=== PATIENT | male | born 1945 | race Caucasian/White ===

== ENCOUNTER 2019-10-15 11:18 | Inpatient (IN) | payer MEDICARE, BC ==
[~2019-10-15] VITALS: Ht 180.3 cm; Wt 86.4 kg
[2019-10-15] VITALS (254 sets, daily range): BP systolic 87–177; BP diastolic 52–96; PULSE 80–95; TEMP 97.8–98.5; O2SAT 91–97
--- NOTE | 2019-10-15 11:45 | NUR ---
SEE MERGE DOCUMENTATION FOR MEDICATION ADMINISTRATION TIMES AND INTRA/POST PROCEDURE SEDATION ASSESSMENTS. RIGHT HAND BARBEAU TEST POSITIVE. TRANSFER DIRECT TO NUCLEAR DESIGN ENGINEER VIA EMS. CP CURRENTLY 07/24.
--- NOTE | 2019-10-15 13:24 | NUR ---
1324 MD Beau called/notified pt experiencing worsening chest pain rated at 3-4/10 to left chest that is aching in nature. Orders recieved - Nitroglycerine gtt initiated. SpO2 90% on room air - 2LNC applied At that time, ABBY Ji on unit and notified of aforementioned - MD Scotty updated by Margy 1347 EKG ordered and RT called with MD Scotty in room d/t chest pain rated at 6/10 - Nitroglycerine gtt increased to 20mcg/min 1348 MD Beau called again 1353 SpO2 92% on 2L NC - increased to 3L 1354 Chest pain rated at 3/10 1356 CathLab team and MD Beau in room - pt off to cathlab after giving bedside report to DILAN Galeas and DILAN Dotson Critical PTT lab result called to DILAN Galeas in cathlab at 1434
[2019-10-15] MEDS ORDERED: LIPITOR 10MG10 MG PO (13:36)
[2019-10-15] MEDS ORDERED: ASPIRIN 81M81 MG/TA2 PO (13:37)
[2019-10-15 13:53] LABS: HEMATOCRIT 51.8 % (42.0-52.0); HEMOGLOBIN 16.9 g/dl (13.5-18.0); MEAN CELL VOLUME 91 fl (80.0-100.0); MEAN CORPUSCULAR HEMOGLOBIN 30 pg (27.0-31.0); MEAN CORPUSCULAR HGB CONC 33 g/dl (33.0-37.0); MEAN PLATELET VOLUME 10.6 fl (7.4-10.4); PLATELET COUNT 179 K/mm3 (130-400); RED BLOOD COUNT 5.67 M/mm3 (4.20-5.60)
[2019-10-15 13:58] LABS: INR 1.8 (0.8-3.0); PROTHROMBIN TIME 20.1 SECONDS (9.7-12.8)
[2019-10-15 14:08] LABS: CALCIUM 9.4 mg/dL (8.4-10.2); CREATININE, serum 1.11 (0.66-1.25); POTASSIUM 4.3 mmol/L (3.4-5.0)
[2019-10-15 14:34] LABS: PARTIAL THROMBOPLASTIN TIME 151.6 SECONDS (26.0-37.0)
--- NOTE | 2019-10-15 19:30 | NUR ---
Received report from DILAN Rodarte. Patient is resting quietly in bed; vitals within normal limits. Patient reports mild soreness in chest rated as 2/10 on numeric pain scale. Some scant drainage noted to the right radial access site; it is otherwise soft to palpation and without hematoma formation. Pulses palpable. Right groin site is also soft to palpation and without hematoma formation; gauze dressing is clean, dry, and intact. No other concerns noted at this time. Will continue to monitor.
--- NOTE | 2019-10-15 22:00 | NUR ---
Patient reports pain to the left lateral chest, specifically at the LL telemetry sticker. Upon assessment, a defib pad is found just distally to the LL telemetry lead, which is tender to palpation. Defib pad is removed; an open blister is noted to the skin where the defib pad had been resting. Blister is approximately 2in long and 0.5in wide. Site is cleaned and a nonadhesive dressing is applied with paper tape.
[2019-10-16] VITALS (379 sets, daily range): BP systolic 92–107; BP diastolic 51–68; PULSE 77–91; TEMP 98.3–99; O2SAT 87–97
[2019-10-16 07:42] LABS: ALBUMIN 2.7 gm/dL (3.5-5.0); BILIRUBIN,TOTAL 3.1 mg/dL (0.0-1.0); CALCIUM 8.6 mg/dL (8.4-10.2); CREATININE, serum 1.27 (0.66-1.25); POTASSIUM 3.9 mmol/L (3.4-5.0); TOTAL PROTEIN 5.2 gm/dL (6.4-8.2)
[2019-10-16 07:44] LABS: BASO % 0.2 % (0.0-2.0); EOS % 0.1 % (0-4.0); GRAN # 10.4 (1.4-6.5); GRAN % 77.9 % (42.2-75.2); HEMATOCRIT 42.5 % (42.0-52.0); LYMPH # 1.4 (1.2-3.4); LYMPH % 10.2 % (20.0-51.0); MEAN CELL VOLUME 90 fl (80.0-100.0); MEAN CORPUSCULAR HEMOGLOBIN 31 pg (27.0-31.0); MEAN CORPUSCULAR HGB CONC 34 g/dl (33.0-37.0); MEAN PLATELET VOLUME 11.2 fl (7.4-10.4); MONO # 1.5 (0.1-0.6); MONO % 11.1 % (1.7-9.3); PLATELET COUNT 156 K/mm3 (130-400); REDCELL DISTRIBUTION WIDTH-CV 14.1 % (11.5-14.5)
[2019-10-16 07:46] LABS: HEMOGLOBIN 14.4 g/dl (13.5-18.0)
[2019-10-16] MEDS ORDERED: LIPITOR 80MG80 MG PO ×2 (09:54→12:31)
[2019-10-16] MEDS ORDERED: BRILINTA90 MG PO ×2 (09:54→12:31)
[2019-10-16] MEDS ORDERED: NITROSTAT0.4 MG/TAB SL ×2 (12:10→12:31)
--- NOTE | 2019-10-16 13:32 | NUR ---
Plan: Return home with Shaista [phone] Assessment: KIMI met with [facility] about care. Patient reports that he resides in [place] with his . Patient reports that his oco is Dr. Smart in [place] and obtain RX from [facility]. Patient denies having any DME use. Patient reports that his will transport at 2 p.m. today. Patient denies having any care concerns. Action: SW educated patient on resources and serivces available to him. Nothing follows.
== END 2019-10-16 14:13 | disposition home or self-care (01) | DRG 246 ==
LOC: IMCU 11:18
PROVIDERS: Internal Medicine Interventional Cardiology; Physician Assistant; ADMIT Internal Medicine
PROC: 027034Z Dilation of Coronary Artery, One Artery with Drug-eluting Intraluminal Device, Percutaneous Approach (ICD-10-PCS; principal; 2019-10-15)
PROC: 4A023N7 Measurement of Cardiac Sampling and Pressure, Left Heart, Percutaneous Approach (ICD-10-PCS; 2019-10-15)
PROC: B2111ZZ Fluoroscopy of Multiple Coronary Arteries using Low Osmolar Contrast (ICD-10-PCS; 2019-10-15)
DX: I21.4 Non-ST elevation (NSTEMI) myocardial infarction (principal); J96.01 Acute respiratory failure with hypoxia; E78.5 Hyperlipidemia, unspecified; K21.9 Gastro-esophageal reflux disease without esophagitis; I25.10 Atherosclerotic heart disease of native coronary artery without angina pectoris; Z87.891 Personal history of nicotine dependence
CPT/HCPCS: 99223-AI; 99239; A4314; C1725; C1760; C1769; C1874; C1887; C9600; J0583; J1327; J1644; J1940; J2250; J2270; J3010; Q9967

== ENCOUNTER → 2020-02-24 | Outpatient (CLI) | payer MEDICARE, BC ==
[~2020-02-24] MED LIST: ASPIRIN 81M81 MG/TA2 PO; BRILINTA90 MG PO; LIPITOR 10MG10 MG PO; LIPITOR 80MG80 MG PO; NITROSTAT0.4 MG/TAB SL
== END ==
LOC: COL.PUL 10:48
DX: R06.02 Shortness of breath (principal); Z87.891 Personal history of nicotine dependence